=== PATIENT | male | born 1965 | race African-American/Black ===

== ENCOUNTER → 2017-01-10 | Outpatient (CLI) | payer OTHER ==
--- NOTE | 2017-01-10 10:34 | REP ---
Clinical: Pain. Technique: AP, lateral, bilateral oblique and sunrise views of the right knee. Findings: Age-related changes include increased sclerosis to the tibial plateau as well as very subtle early spurring along the lateral margin of the patella. No acute fracture or dislocation. No obvious effusion. Impression: Mild age-related degenerative changes. Signed by Landen Alarcon MD 01/10/2017 10:26 A
== END ==
LOC: M RAD 09:16
PROVIDERS: ATTEND Surgery
DX: M25.561 Pain in right knee (principal)